=== PATIENT | male | born 1995 | race Caucasian/White ===

== ENCOUNTER 2020-08-24 12:48 | Emergency (ER) | payer SELFPAY ==
[~2020-08-24] VITALS: Ht 182.9 cm; Wt 81.6 kg
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
[2020-08-24] MEDS ORDERED: Haloperidol 5mg/ml Inj IM ONE (13:15)
[2020-08-24] MEDS ORDERED: DiphenhydrAMINE 50mg/ml Inj IM ONE (13:15)
[2020-08-24] MEDS ORDERED: LORazepam Inj 2mg/ml 1ml IM ONE (13:15)
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
--- NOTE | 2020-08-24 13:45 | NUR ---
[facility]S given lasd at the bedside waiting for x-ray of hand
[2020-08-24 14:19] VITALS: BP 130/80
--- NOTE | 2020-08-24 15:25 | NUR ---
DISCHARGED WITH [facility] INSRTUCTION SEND WITH NELIDA
[2020-08-24 17:12] VITALS: BP 130/80
--- NOTE | 2020-08-25 08:36 | Diagnostic Imaging Report ---
Indication: Pain, trauma Technique: 3 views left hand Comparison: none Findings: Overlying metallic and cuff may obscure pathology. Positioning is also very limited due to limited patient cooperation. No definite acute fracture or dislocation. The joint spaces are preserved. No radiopaque foreign body Impression: Limited exam. No definite acute bony trauma
--- NOTE | 2020-08-25 08:37 | Diagnostic Imaging Report ---
Indication: Right hand pain Technique: 3 views right hand Comparison: none Findings: Exam is limited as patient could not cooperate optimally for positioning. No acute fracture. No dislocation. Joint spaces are preserved. Impression: Negative
== END 2020-08-24 15:00 ==
LOC: EMR 13:30
DX: S60.222A Contusion of left hand, initial encounter (principal); S60.221A Contusion of right hand, initial encounter; X58.XXXA Exposure to other specified factors, initial encounter; Y92.9 Unspecified place or not applicable; R45.1 Restlessness and agitation
CPT/HCPCS: 73130; 96372; 99284; J1200; J1630